=== PATIENT | male | born 1955 | race Caucasian/White ===

== ENCOUNTER → 2021-10-10 | Outpatient (CLI) | payer BC ==
[~2021-10-10] VITALS: Ht 172.7 cm; Wt 93.4 kg
[2021-10-10] VITALS (12 sets, daily range): BP systolic 123–148; BP diastolic 8–99; PULSE 58–73; TEMP 98.1
[~2021-10-10] MED LIST: ELIQUIS 2.5 PO; ELIQUIS 5MG PO; LOVENOX 100100 MG/ML SQ; MINOXIDIL 2.5 PO
== END ==
LOC: COL.RAD 10-08 07:00
DX: E27.9 Disorder of adrenal gland, unspecified (principal)
CPT/HCPCS: 32106

== ENCOUNTER → 2021-10-21 | Outpatient (CLI) | payer BC ==
[2021-10-21] VITALS (10 sets, daily range): BP systolic 131–148; BP diastolic 82–98; PULSE 57–61; TEMP 98.3
[~2021-10-21] VITALS: Ht 172.7 cm; Wt 92.5 kg
== END ==
LOC: COL.RAD 06:12
DX: E27.9 Disorder of adrenal gland, unspecified (principal)
CPT/HCPCS: 32108

== ENCOUNTER → 2021-12-09 | Outpatient (CLI) | payer BC | LOC: COL.RAD 07:43 | DX: C74.01 Malignant neoplasm of cortex of right adrenal gland (principal); K76.89 Other specified diseases of liver; K80.80 Other cholelithiasis without obstruction | CPT/HCPCS: A9575 ==

== ENCOUNTER → 2022-07-01 | Outpatient (CLI) | payer BC | LOC: COL.RAD 06-30 07:30 | DX: Z08 Encounter for follow-up examination after completed treatment for malignant neoplasm (principal); C78.7 Secondary malignant neoplasm of liver and intrahepatic bile duct; R91.8 Other nonspecific abnormal finding of lung field; Z85.858 Personal history of malignant neoplasm of other endocrine glands | CPT/HCPCS: A9575 ==